=== PATIENT | female | born 1985 | race Caucasian/White ===

== ENCOUNTER → 2016-10-29 | Outpatient (CLI) | payer OTHER ==
[~2016-10-29] MED LIST: ACET50TA PO; ANUS2.5C2 TOP; DOCU10CA PO; IBUP80TA PO; MOM30SS PO; NUPE1OIN2 TOP; VITAPRTA PO
[2016-10-29 16:08] LABS: BASO # 0.1 K/mm3 (0.0-0.2); BASO % 1.4 % (0.0-1.0); EOS # 0.2 K/mm3 (0.0-0.50); EOS % 2.4 % (0.0-3.0); LARGE UNSTAINED CELL # 0.2 K/mm3 (0.0-0.4); LARGE UNSTAINED CELL % 2.3 % (0.0-4.0); LYMPH # 2.8 K/mm3 (1.5-4.5); MEAN CORPUSCULAR HEMOGLOBIN 27.8 pg (27.0-33.0); MEAN CORPUSCULAR HGB CONC 33.3 g/dl (32.0-36.5); MEAN CORPUSCULAR VOLUME 83.5 fl (80.0-96.0); MONO # 0.4 K/mm3 (0.0-0.8); MONO % 5.2 % (0.0-5.0); NEUTROPHILS # 3.6 K/mm3 (1.8-7.7); NEUTROPHILS % 51.7 % (36.0-66.0); PLATELET COUNT, AUTOMATED 234 k/mm3 (150-450); RED CELL DISTRIBUTION WIDTH 14.1 % (11.5-14.5)
[2016-10-29 16:27] LABS: FREE T4 0.84 NG/DL (0.76-1.46)
== END ==
LOC: M LAB 15:36
PROVIDERS: ATTEND Family Medicine
DX: O90.6 Postpartum mood disturbance (principal); E55.9 Vitamin D deficiency, unspecified

== ENCOUNTER 2017-02-15 12:57 | Emergency (ER) | payer OTHER ==
[~2017-02-15] VITALS: Ht 170.2 cm; Wt 68.0 kg
[2017-02-15 12:57] VITALS: BP 117/76
[2017-02-15] MEDS ORDERED: SERT-138 PO (13:17)
[2017-02-15] MEDS ORDERED: LIDOCAINE 2% MDV 20 ML VIAL SC ONE (14:30)
[2017-02-15 15:50] LABS: CONTROL LINE INT CTR LINE PRESENT
[2017-02-16 10:04] LABS: HEPATITIS B SURFACE ANTIBODY POSITIVE (POSITIVE)
== END 2017-02-15 14:58 | disposition home or self-care (01) ==
LOC: M ED 14:04
DX: Z77.21 Contact with and (suspected) exposure to potentially hazardous body fluids (principal); S61.233A Puncture wound without foreign body of left middle finger without damage to nail, initial encounter; W46.0XXA Contact with hypodermic needle, initial encounter; Y92.239 Unspecified place in hospital as the place of occurrence of the external cause; Y93.89 Activity, other specified; Y99.0 Civilian activity done for income or pay; J45.909 Unspecified asthma, uncomplicated; Z79.899 Other long term (current) drug therapy; Z88.1 Allergy status to other antibiotic agents; Z88.5 Allergy status to narcotic agent

== ENCOUNTER → 2017-03-16 | Outpatient (CLI) | payer OTHER ==
[~2017-03-16] MED LIST changes: +SERT-138 PO
== END ==
LOC: M LAB 09:37
PROVIDERS: ATTEND Internal Medicine Infectious Disease
DX: Z20.6 Contact with and (suspected) exposure to human immunodeficiency virus [HIV] (principal)
CPT/HCPCS: 36415; 87389; G0463

== ENCOUNTER → 2017-03-16 | Outpatient (REF) | payer OTHER | LOC: M SFHCPLAZ 08:30 | PROVIDERS: ATTEND Internal Medicine Infectious Disease | DX: Z20.6 Contact with and (suspected) exposure to human immunodeficiency virus [HIV] (principal); Z53.8 Procedure and treatment not carried out for other reasons ==

== ENCOUNTER → 2017-04-11 | Outpatient (CLI) | payer OTHER ==
--- NOTE | 2017-04-11 22:44 | REP ---
Clinical: Pain. Technique: AP, lateral views of the left tibia / fibula. Findings: The osseous structures and joint spaces are intact and normal. There is no evidence for acute fracture or dislocation. Surrounding soft tissues are unremarkable. No subcutaneous emphysema or radiodense foreign body. Impression: Normal examination . No acute fracture or dislocation. Signed by Derik Torres MD 04/11/2017 10:31 P
== END ==
LOC: M RAD 17:25
PROVIDERS: ATTEND Family Medicine
DX: M79.605 Pain in left leg (principal)

== ENCOUNTER → 2017-04-23 | Outpatient (CLI) | payer OTHER ==
--- NOTE | 2017-04-23 14:06 | REP ---
MRI LEFT LOWER LEG: Multiple sequences obtained in the axial, sagittal and coronal planes. Focal marrow edema in the distal tibia is somewhat ill-defined, extending through the entire shaft and consistent with a focal stress fracture. There is adjacent surrounding soft tissue edema predominately medially. No other abnormal marrow signal is seen in the tibia or fibula. No other abnormal soft tissue signal is seen. IMPRESSION: Stress fracture distal tibia with adjacent soft tissue edema. Signed by Joni Nelson MD 04/23/2017 03:21 P
== END ==
LOC: M RAD 08:06
PROVIDERS: ATTEND Physician Assistant
DX: M84.362A Stress fracture, left tibia, initial encounter for fracture (principal); R60.0 Localized edema; X58.XXXA Exposure to other specified factors, initial encounter; Y92.9 Unspecified place or not applicable

== ENCOUNTER → 2017-04-26 | Outpatient (CLI) | payer OTHER ==
[2017-04-26 18:11] LABS: FOLATE > 24.0 NG/ML; VITAMIN B12 LEVEL 756 PG/ML
[2017-04-26 18:34] LABS: FREE T4 0.83 NG/DL (0.76-1.46)
[2017-05-01 00:06] LABS: SJOGREN'S ANTI SS-A <0.2 AI (0.0-0.9); SJOGREN'S ANTI SS-B <0.2 AI (0.0-0.9); VITAMIN E LEVEL 10.5 mg/L (5.3-16.8)
== END ==
LOC: M LAB 15:34
PROVIDERS: ATTEND Psychiatry & Neurology Neurology
DX: G62.9 Polyneuropathy, unspecified (principal); Z13.1 Encounter for screening for diabetes mellitus; Z13.29 Encounter for screening for other suspected endocrine disorder

== ENCOUNTER → 2017-04-27 | Outpatient (CLI) | payer OTHER | LOC: M LAB 06:13 | PROVIDERS: ATTEND Psychiatry & Neurology Neurology | DX: G62.9 Polyneuropathy, unspecified (principal); Z13.1 Encounter for screening for diabetes mellitus; Z13.29 Encounter for screening for other suspected endocrine disorder; Z53.8 Procedure and treatment not carried out for other reasons ==

== ENCOUNTER → 2018-07-12 | Outpatient (CLI) | payer OTHER ==
[2018-07-12 13:35] LABS: HCG, SERUM QUANTITATIVE < 1.0 MIU/ML
== END ==
LOC: M LAB 12:37
DX: N91.2 Amenorrhea, unspecified (principal)
CPT/HCPCS: 84702